=== PATIENT | female | born 1995 | race Caucasian/White ===

== ENCOUNTER 2021-06-02 19:52 | Emergency (ER) | payer OTHER ==
[~2021-06-02] VITALS: Ht 170.2 cm; Wt 59.0 kg
--- NOTE | 2021-06-02 20:42 | NUR ---
pt came in c/o abdominal cramps with vaginal bleeding for 3 days. pt a/o x4, connected to monitor.
--- NOTE | 2021-06-02 20:50 | NUR ---
DR. FAULKNER AT PT'S BEDSIDE
--- NOTE | 2021-06-02 20:51 | NUR ---
COMBINATION MAN AT PT'S BEDSIDE
--- NOTE | 2021-06-02 20:51 | NUR ---
OFFERED PT URINE CUP; NOT ABLE TO GIVE URINE SAMPLE AT THIS TIME. WILL F/U AND TRY AGAIN LATER
[2021-06-02 21:24] LABS: BASOPHILS % (AUTO) 0.5 % (0.0-2.0); HEMATOCRIT 36 % (33-45); HEMOGLOBIN 12.3 g/dL (11.5-14.8); LYMPHOCYTES # (AUTO) 2.4 K/uL (0.8-4.8); LYMPHOCYTES % (AUTO) 26.8 % (20.0-44.0); MEAN CORPUSCULAR HGB CONC 34 g/dl (31.0-36.0); MEAN CORPUSCULAR VOLUME 94 fL (82-100); MONOCYTES % (AUTO) 10.5 % (2.0-12.0); NEUTROPHILS # (AUTO) 5.5 K/uL (1.8-8.9); NEUTROPHILS % (AUTO) 60.2 % (43.0-81.0); PLATELET COUNT (AUTO) 283 K/uL (150-450); RED BLOOD CELL COUNT(AUTO) 3.82 MIL/uL (4.0-5.2); WHITE BLOOD COUNT (AUTO) 9.1 K/uL (4.3-11.0)
[2021-06-02 21:35] LABS: CALCIUM, SERUM 8.5 mg/dL (8.5-10.1); CREATININE 0.7 mg/dL (0.6-1.3); POTASSIUM 4.1 mmol/L (3.5-5.1)
--- NOTE | 2021-06-02 21:35 | NUR ---
US TECH AT PT'S BEDSIDE
[2021-06-02 21:48] LABS: ALBUMIN 3.5 g/dL (3.4-5.0); BILIRUBIN,DIRECT 0.1 mg/dL (0.0-0.2); BILIRUBIN,TOTAL 0.1 mg/dL (0.2-1.0); TOTAL PROTEIN, SERUM 6.6 g/dL (6.4-8.2)
[2021-06-03 00:35] VITALS: BP 105/64
--- NOTE | 2021-06-03 00:35 | NUR ---
Patient discharged to home in stable condition. Written and verbal after care instructions given. Patient verbalizes understanding of instruction. PT ambulatory with a steady gait
== END 2021-06-03 00:38 | disposition home or self-care (01) ==
LOC: ER 20:00
DX: O03.9 Complete or unspecified spontaneous abortion without complication (principal); Z88.0 Allergy status to penicillin
CPT/HCPCS: 36415; 76805-TC; 80048-TC; 80076-TC; 84702-TC; 84703-TC; 85025-TC; 85730-TC; 86850-TC